=== PATIENT | male | born 1970 | race Two or more races ===

== ENCOUNTER 2016-07-21 06:49 | Day surgery (SDC) | payer OTHER ==
[2016-07-20 15:32] VITALS: BMI 25.9
[2016-07-21] VITALS (14 sets, daily range): BP systolic 124–145; BP diastolic 62–85; PULSE 64–97; RESP 16–18; Ht 167.6 cm; Wt 86.0 kg
[~2016-07-21] VITALS: Ht 167.6 cm; Wt 86.0 kg
[~2016-07-21 06:49] MED LIST: CEFAZOLIN 2 GM/50 ML (PMX) 50 ML IVPB SCH; SOD CHLORIDE 0.9% 1,000 ML IV SCH
[2016-07-21] MEDS ORDERED: CEFAZOLIN 1 GM INJ ONE (07:00)
[2016-07-21] MEDS ORDERED: CLOP75TA4 PO (08:11)
[2016-07-21] MEDS ORDERED: ASPI-664 PO (08:11)
[2016-07-21] MEDS ORDERED: METO-448 PO (08:11)
[2016-07-21] MEDS ORDERED: LOSA25TA5 PO (08:11)
[2016-07-21] MEDS ORDERED: BUPIVACAINE 0.25% (MPF) 30 ML INJ ONE (09:08)
[2016-07-21] MEDS ORDERED: LIDOCAINE 2% (SDV) 5 ML INJ ONE (09:13)
[2016-07-21] MEDS ORDERED: PROPOFOL 20 ML ONE (09:13)
[2016-07-21] MEDS ORDERED: NEOSTIGMINE 3 MG/3 ML SYRINGE ONE ×2 (09:13→09:50)
[2016-07-21] MEDS ORDERED: ROCURONIUM 50 MG INJ ONE (09:13)
[2016-07-21] MEDS ORDERED: GLYCOPYRROLATE 0.4 MG INJ ONE ×2 (09:13→09:50)
[2016-07-21] MEDS ORDERED: SUCCINYLCHOLINE CHLORIDE 100 MG/5 ML SYG IV ONE (09:13)
[2016-07-21] MEDS ORDERED: MEPERIDINE 100 MG INJ ONE (09:14)
[2016-07-21] MEDS ORDERED: LABETALOL HCL 20MG INJ ONE (09:52)
[2016-07-21] MEDS ORDERED: LABETALOL HCL 20MG INJ IV PRN (10:00)
[2016-07-21] MEDS ORDERED: METOCLOPRAMIDE 10 MG INJ IV PRN (10:00)
[2016-07-21] MEDS ORDERED: FENTAnyl 50 MCG/ML VIAL IV PRN ×2 (10:00)
[2016-07-21] MEDS ORDERED: ONDANSETRON 4 MG INJ IV PRN (10:00)
[2016-07-21] MEDS ORDERED: hydrALAzine 20 MG INJ IV PRN (10:00)
[2016-07-21] MEDS ORDERED: EPHEDrine SULFATE 50 MG/5 ML SYG IV PRN (10:00)
[2016-07-21] MEDS ORDERED: MEPERIDINE 25 MG INJ IV PRN (10:00)
[2016-07-21] MEDS ORDERED: MIDAZOLAM 1 MG/ML 2 ML INJ IV PRN (10:00)
[2016-07-21] MEDS ORDERED: DIPHENHYDRAMINE 50 MG INJ IV PRN (10:00)
[2016-07-21] MEDS ORDERED: morphine (1 MG/ML) 10ML SYRINGE IV PRN ×2 (10:00)
[2016-07-21] MEDS ORDERED: HYDROmorphONE (0.2 MG/ML) 10ML SYG IV PRN ×2 (10:00)
--- NOTE | 2016-07-21 10:46 | OPR ---
DATE OF OPERATION: 07/21/2016 INDICATION: This is a 45-year-old male with complex hemorrhoids. He requests surgical excision. R isks, alternatives, benefits, and personnel were discussed with the patient. The patient expressed understanding and consents to the operation. PREOPERATIVE DIAGNOSIS: Complex internal and external grade IV hemorrhoids. POSTOPERATIVE DIAGNOSIS: Complex internal and external grade IV hemorrhoids. OPERATION PERFORMED: 1. Complex internal and external hemorrhoidectomy x2. 2. Rigid proctoscopy. 3. Therapeutic injection of local anesthesia to the perianal region. CPT code 75932. SURGEON: Don Holt MD SPECIMEN: Left lateral and right anterior hemorrhoidal complex. COMPLICATIONS: None. ANESTHESIA: General. PROCEDURE: The patient was taken to the OR and prepped and draped in usual sterile fashion. Surgic al timeout was performed. IV antibiotics were given. Rigid proctoscopy was performed. There was n o evidence of any masses or obstructive lesions. Hemorrhoidectomy was then performed by first asses sing the left lateral column. Schroeder was used to grasp the left lateral hemorrhoidal complex. [id number] 3-0 Vicryl suture was placed into the internal hemorrhoidal artery. The internal an d external hemorrhoidal complex was excised with a 15 blade and handheld LigaSure. There was good h emostasis. The tissue defect was then partially closed with a running 3-0 Vicryl and tied down. The right anterior hemorrhoidal column was addressed in a similar fashion. [id number] 3-0 Vicr yl suture was placed into the right anterior internal hemorrhoidal artery. The internal and externa l hemorrhoidal complex was then excised with a 15 blade and handheld LigaSure. There was good hemos tasis. The defect was then partially closed with a running 3-0 Vicryl. There was good hemostasis. Local anesthesia was injected into the perianal tissues. Dry dressings were applied. Dictated By: DON HOLT MD SB/LUANN Conf#: [id number] DID#: [id number]
[2016-07-21] MEDS ORDERED: BISACODYL (EC) 5 MG TAB PO ONE (11:00)
[2016-07-21] MEDS ORDERED: HYDROCODONE/APAP (5/325) TAB PO ONE (11:00)
[2016-07-22] MEDS ORDERED: MAGN296S40 PO (17:13)
== END 2016-07-21 13:10 | disposition home or self-care (01) ==
LOC: SDS 06:49
PROVIDERS: ATTEND Surgery
DX: K64.3 Fourth degree hemorrhoids (principal); I10 Essential (primary) hypertension; I25.10 Atherosclerotic heart disease of native coronary artery without angina pectoris; E78.5 Hyperlipidemia, unspecified; F17.200 Nicotine dependence, unspecified, uncomplicated; Z98.61 Coronary angioplasty status
CPT/HCPCS: 46260; 88305; J0330; J0690; J1170; J2175; J2710

== ENCOUNTER 2016-07-22 16:06 | Emergency (ER) | payer OTHER ==
[~2016-07-22] VITALS: Wt 89.0 kg
[~2016-07-22 16:06] MED LIST changes: +ASPI-664 PO; -CEFAZOLIN 2 GM/50 ML (PMX) 50 ML IVPB SCH; +CLOP75TA4 PO; +LOSA25TA5 PO; +METO-448 PO; -SOD CHLORIDE 0.9% 1,000 ML IV SCH
[2016-07-22] MEDS ORDERED: MAGNESIUM CITRATE 300 ML BTL PO ONE (17:00)
[2016-07-22] MEDS ORDERED: LIDOCAINE 2% 20 ML UROJET SYRINGE MM ONE (17:00)
--- NOTE | 2016-07-22 17:01 | ERD ---
ER Documentation Chief Complaint Date/Time DATE: 07/22/16 TIME: 16:58 Chief Complaint UNABLE TO URINATE OR HAVE BM SINCE PROCEDURE YESTERDAY HPI 45-year-old male status post internal and external hemorrhoidectomy yesterday under general anesthesia who presents to the emergency room complaining of constipation and difficulty voiding urine. The patient does describe some mild perianal pain that is moderate but he states an inability to have a bowel movement. He denies any nausea or vomiting. He is tolerating oral intake. He is taking a stool softener and Empire. The patient also describes an inability to void urine. He describes suprapubic abdominal fullness and discomfort that is moderate. He describes an urge to urinate. ROS All systems reviewed and are negative except as per history of present illness. Medications Home Meds Active Scripts Magnesium Citrate* (Magnesium Citrate*) 296 Ml Solution, 296 ML PO ONCE Y for CONSTIPATION, #1 BOTTLE 2 Refills Prov:REAL GARCÍA MD 07/22/16 Reported Medications Losartan Potassium* (Losartan Potassium*) 25 Mg Tablet, 25 MG PO DAILY, TAB 07/21/16 Clopidogrel Bisulfate* (Clopidogrel Bisulfate*) 75 Mg Tablet, 75 MG PO DAILY, # 30 TAB 07/21/16 Aspirin* (Aspirin* EC) 81 Mg Tablet.dr, 81 MG PO DAILY, TAB 07/21/16 Metoprolol Tartrate* (Lopressor*) 25 Mg Tab, 25 MG PO BID, #60 TAB 07/21/16 Allergies Allergies: Coded Allergies: No Known Allergy (Unverified , 07/21/16) PMhx/Soc History of Surgery: No (ANGIOGRAM/STENT) Anesthesia Reaction: No Hx Neurological Disorder: No Hx Respiratory Disorders: No Hx Cardiac Disorders: Yes (CHEST PAIN WITH ANGIOGRAM AND STENT) Hx Psychiatric Problems: No Hx Miscellaneous Medical Probl: No Hx Alcohol Use: Yes (SOMETIMES) Hx Substance Use: No Hx Tobacco Use: Yes (5 TO 6 CIG A DAY) Smoking Status: Current every day smoker FmHx Family History: No diabetes Physical Exam Vitals Vital Signs Date Time Temp Pulse Resp B/P Pulse Ox O2 Delivery O2 Flow Rate FiO2 07/22/16 16:07 99.4 87 18 150/81 99 Physical Exam General: Well developed, well nourished, no acute distress Head: Normocephalic, atraumatic. Eyes: Pupils equally reactive, EOM intact ENT: Moist mucous membranes Neck: Supple, no lymphadenopathy Respiratory: Lungs clear bilaterally, no distress Cardiovascular: RRR, no murmurs, rubs, or gallops Abdominal: Soft, mild suprapubic fullness without rebound or guarding : External examination with normal, well-healing surgical site, deferred internal examination MSK: No edema, no unilateral swelling, 5/5 strength Neurologic: Alert and oriented, moving all extremities, normal speech, no focal weakness, no cerebellar signs Skin: No rash Psych: Normal mood Results 24 hrs Current Medications Medications (Trade) Dose Ordered Sig/Marisol Route PRN Reason Start Time Stop Time Status Last Admin Dose Admin Lidocaine (Lidocaine 2% Urojet) 20 ml ONCE ONCE MM 07/22/16 17:00 07/22/16 17:01 DC 07/22/16 17:07 Magnesium Citrate (Citroma) 300 ml ONCE ONCE PO 07/22/16 17:00 07/22/16 17:01 DC 07/22/16 17:07 Procedures/MDM The patient presents with signs and symptoms consistent with urinary retention likely secondary to general anesthesia. Additionally the patient has constipation again likely secondary to general anesthesia and surgical procedure. The patient has a benign abdominal exam I do not believe this is consistent with a bowel obstruction. No signs or symptoms concerning for surgical complication. The patient will benefit from insertion of a Robles catheter, leg bag for approximately 2 days and removal with a trial of urination. No fever no evidence of urinary tract infection no evidence of acute testicular process. Stronger stool softener will also be appropriate. Magnesium citrate provided. The patient's general surgeon, Dr. Holt was notified. No indication for laboratory testing or CT imaging at this time. Return precautions discussed. Greater than 600 cc output of urine after Robles catheter insertion. Leg bag provided. Removal in 1-2 days. We discussed follow up with the patient's primary care doctor within 24 to 48 hours as needed. We also discussed return to the emergency room for worsening symptoms or worsening condition. Outpatient referral: General surgery Dr. Holt Discharge Medications: Magnesium citrate Departure Diagnosis: Primary Impression: Constipation Constipation type: unspecified constipation type Qualified Code: K59.00 - Constipation, unspecified constipation type Additional Impression: Acute urinary retention Condition: Stable REAL GARCÍA MD Jul 22, 2016 17:01
[2016-07-22] MEDS ORDERED: MAGN296S40 PO (17:13)
== END 2016-07-22 18:11 | disposition home or self-care (01) ==
LOC: E/R 16:06
DX: K59.00 Constipation, unspecified (principal); R33.9 Retention of urine, unspecified; F17.210 Nicotine dependence, cigarettes, uncomplicated; Z79.82 Long term (current) use of aspirin; Z79.01 Long term (current) use of anticoagulants; Z98.61 Coronary angioplasty status

== ENCOUNTER 2016-07-24 13:01 | Emergency (ER) | payer OTHER ==
[~2016-07-24] VITALS: Ht 167.6 cm; Wt 85.0 kg
[~2016-07-24 13:01] MED LIST changes: +MAGN296S40 PO
[2016-07-24 13:10] VITALS: Ht 167.6 cm; Wt 85.0 kg
[2016-07-24 16:59] LABS: URINE BLOOD (Dip) POC 3+ (NEGATIVE)
--- NOTE | 2016-07-24 21:18 | ERD ---
ER Documentation Chief Complaint Date/Time DATE: 07/24/16 TIME: 21:16 Chief Complaint Patient here for a tavarez cath removal HPI This patient is a 45-year-old male with history of recent Tavarez catheter insertion approximately 2 days ago seen in the emergency department here by Dr. Shaquille Damian, who stated he may have the catheter removed 48 hours after was placed. Patient is here for removal of the catheter. The patient has no complaints currently. ROS All systems reviewed and are negative except as per history of present illness. Medications Home Meds Active Scripts Magnesium Citrate* (Magnesium Citrate*) 296 Ml Solution, 296 ML PO ONCE Y for CONSTIPATION, #1 BOTTLE 2 Refills Prov:SHAQUILLE DAMIAN MD 07/22/16 Reported Medications Losartan Potassium* (Losartan Potassium*) 25 Mg Tablet, 25 MG PO DAILY, TAB 07/21/16 Clopidogrel Bisulfate* (Clopidogrel Bisulfate*) 75 Mg Tablet, 75 MG PO DAILY, # 30 TAB 07/21/16 Aspirin* (Aspirin* EC) 81 Mg Tablet.dr, 81 MG PO DAILY, TAB 07/21/16 Metoprolol Tartrate* (Lopressor*) 25 Mg Tab, 25 MG PO BID, #60 TAB 07/21/16 Allergies Allergies: Coded Allergies: No Known Allergy (Unverified , 07/21/16) PMhx/Soc History of Surgery: No (ANGIOGRAM/STENT) Anesthesia Reaction: No Hx Neurological Disorder: No Hx Respiratory Disorders: No Hx Cardiac Disorders: Yes (CHEST PAIN WITH ANGIOGRAM AND STENT) Hx Psychiatric Problems: No Hx Miscellaneous Medical Probl: No Hx Alcohol Use: Yes (SOMETIMES) Hx Substance Use: No Hx Tobacco Use: Yes (5 TO 6 CIG A DAY) Smoking Status: Current some day smoker FmHx Noncontributory for chief complaint. Physical Exam Vitals Vital Signs Date Time Temp Pulse Resp B/P Pulse Ox O2 Delivery O2 Flow Rate FiO2 07/24/16 13:10 98.3 92 20 141/90 96 Physical Exam Const: The patient is resting comfortably in no acute distress. Head: Atraumatic Eyes: Normal Conjunctiva ENT: Normal External Ears, Nose and Mouth. Neck: Full range of motion..~ No meningismus. Resp: Clear to auscultation bilaterally Cardio: Regular rate and rhythm, no murmurs Abd: Soft, non tender, non distended. Normal bowel sounds : Tavarez catheter in place with no signs of infection. Skin: No petechiae or rashes Back: No midline or flank tenderness Ext: No cyanosis, or edema Neur: Awake and alert Psych: Normal Mood and Affect Results 24 hrs Laboratory Tests Test 07/24/16 17:00 Bedside Urine pH (LAB) 6.0 Bedside Urine Protein (LAB) 2+ Bedside Urine Glucose (UA) Negative Bedside Urine Ketones (LAB) Negative Bedside Urine Blood 3+ Bedside Urine Nitrite (LAB) Negative Bedside Urine Leukocyte Esterase (L Negative Procedures/MDM 45-year-old male presents to the emergency department for removal of Tavarez catheter. The patient's examination is normal. Patient's blood pressure was elevated (>120/80) but appears stable without evidence of hypertension emergency or urgency. The patient was counseled about the risks of hypertension and urged to pursue outpatient monitoring and therapy within a week with their primary care physician. There is no sign of infection on urine dip. Tavarez catheter removed successfully by nursing staff. The patient tolerated this well. Strict ER return precautions discussed. The patient is to have close follow-up with his primary care physician. Departure Diagnosis: Primary Impression: Encounter for removal of urinary catheter Condition: Fair Patient Instructions: Tavarez Catheter Removal Additional Instructions: Follow up with your PCP within the next 1-3 days for a more thorough evaluation and a possible referral to a specialist. Return the the emergency department immediately if symptoms worsen or change. If you have any questions regarding medications, ask your pharmacist or us before you leave. If any adverse reactions, occur while taking your medications, discontinue the treatment and return to the emergency department immediately. If any new or worsening symptoms, uncontrolled fevers, or other unexplained symptoms occur, return to the emergency department immediately. Take your medications as directed, and complete the entire course of treatment. SAMAN ELLIOTT PA-C July 24, 2016 21:18
== END 2016-07-24 17:14 | disposition home or self-care (01) ==
LOC: FTE 13:01
DX: Z46.6 Encounter for fitting and adjustment of urinary device (principal); F17.210 Nicotine dependence, cigarettes, uncomplicated; Z79.82 Long term (current) use of aspirin; Z98.61 Coronary angioplasty status
CPT/HCPCS: 81003; 99283

== ENCOUNTER 2016-07-28 13:06 | Inpatient (IN) | payer OTHER ==
[~2016-07-28] VITALS: Ht 170.2 cm; Wt 88.9 kg
[2016-07-28] MEDS ORDERED: SOD CHLORIDE 0.9% 1,000 ML IV STA ×3 (13:43→15:39)
[2016-07-28 13:51] LABS: ADD SCAN DIFF NO
[2016-07-28 13:52] LABS: BASOPHILS % 0.2 % (0.0-2.0); EOSINOPHILS % 0.3 % (0.0-7.0); HEMATOCRIT 33.2 % (42.0-52.0); HEMOGLOBIN 10.4 g/dl (14.0-18.0); LYMPHOCYTES % 17.4 % (15.0-51.0); MEAN CORPUSCULAR HEMOGLOBIN 24.7 pg (29.0-33.0); MEAN CORPUSCULAR HGB CONC 31.3 g/dl (32.0-37.0); MEAN CORPUSCULAR VOLUME 78.9 fl (82.0-101.0); MEAN PLATELET VOLUME 10.4 fl (7.4-10.4); MONOCYTE # 0.5 10^3/ul (0.3-0.9); MONOCYTES % 4.5 % (0.0-11.0); NEUTROPHILS % 77.3 % (39.0-77.0); PLATELET COUNT 383 10^3/UL (140-415); RED BLOOD COUNT 4.21 10^6/ul (4.70-6.10); RED CELL DISTRIBUTION WIDTH 20.4 % (11.5-14.5); WHITE BLOOD COUNT 11.6 10^3/ul (4.8-10.8)
--- NOTE | 2016-07-28 14:07 | RADRPT ---
PROCEDURE: XR CHEST AP PORTABLE CLINICAL INDICATION: Syncope TECHNIQUE: Single frontal view of the chest COMPARISON: None. FINDINGS: The cardiomediastinal silhouette and pulmonary vasculature are normal. The lungs are clear. No consolidation, effusion, or pneumothorax. The osseous structures are unremarkable. IMPRESSION: No acute cardiopulmonary process. RPTAT:PP .Alexander Joel MD, MD Date Time Electronically viewed and signed by .Alexander Joel MD, MD on 07/28/2016 14:07 .V/
[2016-07-28 14:09] LABS: INR 1.03; PROTIME 13.5 Sec (12.2-14.2); PT RATIO 1.1
[2016-07-28 14:10] LABS: PARTIAL THROMBOPLASTIN TIME 26.1 Sec (25.0-35.0)
[2016-07-28 14:12] LABS: POTASSIUM 3.9 mmol/L (3.5-5.1)
[2016-07-28 14:14] LABS: CREATININE 0.99 mg/dl (0.61-1.24)
[2016-07-28 14:15] LABS: CALCIUM 9.6 mg/dl (8.4-10.2)
--- NOTE | 2016-07-28 14:55 | ERA ---
ER Documentation Chief Complaint Date/Time DATE: 07/28/16 TIME: 14:51 Chief Complaint rectal bleed x 4 days HPI 45-year-old male with a history of coronary artery disease status post PCI and internal/external hemorrhoidectomy 07/21/2016 complicated by postop urinary retention presents the ED by rescue ambulance complaining of ongoing, severe, rectal pain and profuse bleeding. Denies chest pain or palpitations. Light headed but no syncope. Denies abdominal pain N/V/D/C. No relieving or exacerbating factors. No fevers or chills. ROS All systems reviewed and are negative except as per history of present illness. Medications Home Meds Active Scripts Polysaccharide Iron Complex* (NIFEREX-150*) 1 Cap Cap, 1 CAP PO BID for 28 Days , CAP Prov:FLAVIA SAEZ MD 07/30/16 Reported Medications Sennosides/Docusate Sodium (Stool Softener-Laxative Tablet) 1 Each Tablet, 1 EACH PO BID, TAB 07/28/16 Hydrocodone/Acetaminophen (Madison 5-325 Tablet) 1 Each Tablet, 1 EACH PO QID, TAB 07/28/16 Losartan Potassium* (Losartan Potassium*) 25 Mg Tablet, 25 MG PO DAILY, TAB 07/21/16 Clopidogrel Bisulfate* (Clopidogrel Bisulfate*) 75 Mg Tablet, 75 MG PO DAILY, # 30 TAB 07/21/16 Aspirin* (Aspirin* EC) 81 Mg Tablet.dr, 81 MG PO DAILY, TAB 07/21/16 Metoprolol Tartrate* (Lopressor*) 25 Mg Tab, 25 MG PO BID, #60 TAB 07/21/16 Discontinued Scripts Magnesium Citrate* (Magnesium Citrate*) 296 Ml Solution, 296 ML PO ONCE Y for CONSTIPATION, #1 BOTTLE 2 Refills Prov:REAL GARCÍA MD 07/22/16 Allergies Allergies: Coded Allergies: No Known Allergy (Unverified , 07/28/16) PMhx/Soc Reviewed in chart. As per HPI History of Surgery: No (ANGIOGRAM/STENT, HEMORRHOID/RECTAL) Anesthesia Reaction: No Hx Neurological Disorder: No Hx Respiratory Disorders: No Hx Cardiac Disorders: Yes (CHEST PAIN WITH ANGIOGRAM AND STENT, HTN, HYPERLIPIDEMIA) Hx Psychiatric Problems: No Hx Miscellaneous Medical Probl: No Hx Alcohol Use: Yes (SOMETIMES) Hx Substance Use: No Hx Tobacco Use: Yes Smoking Status: Current every day smoker FmHx Not relevant to presenting complaint. Reviewed in chart. Physical Exam Vitals Vital Signs Date Time Temp Pulse Resp B/P Pulse Ox O2 Delivery O2 Flow Rate FiO2 07/28/16 13:59 Nasal Cannula 2 07/28/16 13:14 97.5 102 18 104/58 99 Physical Exam Const: Alert moderate distress. Head: Atraumatic Eyes: Conjunctiva pale ENT: Normal External Ears, Nose and Mouth. Neck: Full range of motion.Nontender Resp: Clear to auscultation bilaterally Cardio: Regular rate and rhythm, no murmurs Abd: Soft, non tender, non distended. Normal bowel sounds. Rectal Exam: Mild bleeding. Diffuse tenderness. Skin: No petechiae or rashes Back: No midline or flank tenderness Ext: No cyanosis, or edema Neur: Awake and alert. No focal deficit. Psych: Anxious but not depressed. Result Diagram: 07/30/16 0501 07/30/16 0501 Results 24 hrs Laboratory Tests Test 07/28/16 13:35 07/28/16 13:37 Bedside Glucose 170mg/dL White Blood Count 11.610^3/ul Red Blood Count 4.2110^6/ul Hemoglobin 10.4g/dl Hematocrit 33.2% Mean Corpuscular Volume 78.9fl Mean Corpuscular Hemoglobin 24.7pg Mean Corpuscular Hemoglobin Concent 31.3g/dl Red Cell Distribution Width 20.4% Platelet Count 27113^3/UL Mean Platelet Volume 10.4fl Neutrophils % 77.3% Lymphocytes % 17.4% Monocytes % 4.5% Eosinophils % 0.3% Basophils % 0.2% Nucleated Red Blood Cells % 0.0/100WBC Neutrophils # 9.010^3/ul Lymphocytes # 2.010^3/ul Monocytes # 0.510^3/ul Eosinophils # 0.010^3/ul Basophils # 0.010^3/ul Nucleated Red Blood Cells # 0.010^3/ul Prothrombin Time 13.5Sec Prothrombin Time Ratio 1.1 INR International Normalized Ratio 1.03 Activated Partial Thromboplast Time 26.1Sec Sodium Level 140mmol/L Potassium Level 3.9mmol/L Chloride Level 103mmol/L Carbon Dioxide Level 23mmol/L Anion Gap 18 Blood Urea Nitrogen 17mg/dl Creatinine 0.99mg/dl Glucose Level 158mg/dl Calcium Level 9.6mg/dl Troponin I < 0.012ng/ml Current Medications Medications (Trade) Dose Ordered Sig/Marisol Route PRN Reason Start Time Stop Time Status Last Admin Dose Admin Sodium Chloride (NS) 1,000 ml @ 1,000 mls/hr Q1H STAT IV 07/28/16 13:43 07/28/16 14:42 DC 07/28/16 15:13 EKG: Time: []. Sinus rhythm. Ventricular rate [], normal LA and QRS intervals. No acute ST segment elevation or depression. No axis deviation or ectopy. EP Impression: Normal EKG IMAGING: [ ] Procedures/MDM DOCUMENTS REVIEWED: ED nurse, prior ED, prior MEDICAL DECISION MAKIN-year-old male with a history of coronary artery disease status post PCI and internal/external hemorrhoidectomy 07/21/2016 complicated by postop urinary retention presents the ED by rescue ambulance complaining of ongoing, severe, rectal pain and bleeding. Post-Op pain without signs of infection or abscess. Ongoing bleeding likely due to ongoing clopidogrel and aspirin use. H/H 10.4/33.2 but suspect will drop significantly after IV hydration. Admit to med/surg for further evalauation and management including serial H/H's, pain management and surgical consultation. Counseled patient and family regarding diagnosis, diagnostic results and plan for admission. CALLS/CONSULTS: Time 14:50, Dr. Chiqui Ochoa, Recommends admission. CALLS/CONSULTS: Time 15:30, Dr. Elena Saez, Recommends admission to med/surg. PATIENT CARE TRANSITIONED: Time: 15:30, Dr. Elena Saez. Departure Diagnosis: Primary Impression: Rectal hemorrhage Additional Impressions: Post-op pain H/O heart artery stent Bleeding hemorrhoids Condition: Serious GUY SHIPMAN MD July 28, 2016 14:55
[2016-07-28] MEDS ORDERED: HYDR-906 PO (15:03)
[2016-07-28] MEDS ORDERED: SENN1TAB5 PO (15:05)
[2016-07-28] MEDS ORDERED: ONDANSETRON 4 MG INJ IV PRN ×2 (16:00→16:30)
[2016-07-28] MEDS ORDERED: ACETAMINOPHEN 325 MG TAB PO PRN ×2 (16:00→16:30)
--- NOTE | 2016-07-28 16:08 | QN ---
Documentation Comment [id number] FLAVIA SAEZ MD July 28, 2016 16:08
[2016-07-28 16:19] VITALS: TEMP 98
--- NOTE | 2016-07-28 16:24 | HP ---
DATE OF ADMISSION: 07/28/2016 HISTORY OF PRESENT ILLNESS: The patient is a 45-year-old male with history of CAD, history of coron keesha angiogram and stent placement in the past, recently had hemorrhoid surgery, presented with blood per rectum. Surgery was done last week. Patient's hematocrit was 33.2. ____ 11.6, sodium 140, po tassium 3.9. The patient denies any chest pain, palpitations right now. Chest x-ray is unremarkabl e. PAST MEDICAL HISTORY: Positive for hemorrhoids, status post surgery, history of CAD, history of cor onary angiogram and stent placement. ALLERGY HISTORY: NEGATIVE. FAMILY HISTORY: Negative. SOCIAL HISTORY: Negative at this point. MEDICATIONS: 1. Aspirin. 2. Plavix. 3. Hydrocodone. 4. Losartan. 5. Metoprolol. 6. Senna. REVIEW OF SYSTEMS: HEENT: Unremarkable. RESPIRATORY: Unremarkable. CARDIOVASCULAR: Unremarkable. ABDOMEN: As mentioned above. EXTREMITIES: Unremarkable. PHYSICAL EXAMINATION: GENERAL: The patient is awake, alert. VITAL SIGNS: Stable. HEAD: Atraumatic, normocephalic. Pupils equal, reactive to light. NECK: Supple. No JVD. LUNGS: Clear. CARDIOVASCULAR: S1, S2 are normal. ABDOMEN: Soft, nontender. Bowel sounds present. No palpable mass or hepatosplenomegaly. No guard ing or rebound tenderness. EXTREMITIES: No cyanosis, clubbing, or edema. CENTRAL NERVOUS SYSTEM: The patient is awake and alert with no focal deficit. LABORATORY DATA: As mentioned above. IMPRESSION: The patient has rectal bleed status post hemorrhoid surgery and leukocytosis. The azar ent has history of CAD and stent placement. PLAN: Continue gentle IV fluid, check CBC. If low, blood transfusion. The patient should have a f ollowup from Dr. Holt, the surgeon. The patient's electrolytes will be monitored. Dictated By: FLAVIA SAEZ MD BS/NTS Conf#: [id number] DID#: [id number]
[2016-07-28] MEDS ORDERED: NACL 0.9% 3 ML SYG IV SCH (16:30)
[2016-07-28] MEDS ORDERED: MAGNESIUM HYDROXIDE 30ML CUP PO PRN (16:30)
[2016-07-28] MEDS ORDERED: DOCUSATE SODIUM 100 MG CAP PO PRN (16:30)
[2016-07-28 16:38] LABS: ADD SCAN DIFF NO
[2016-07-28 16:44] LABS: BASOPHILS % 0.1 % (0.0-2.0); EOSINOPHILS % 0.2 % (0.0-7.0); HEMATOCRIT 27.8 % (42.0-52.0); HEMOGLOBIN 8.5 g/dl (14.0-18.0); LYMPHOCYTES # 1.2 10^3/ul (0.8-2.9); LYMPHOCYTES % 12.2 % (15.0-51.0); MEAN CORPUSCULAR HEMOGLOBIN 24.6 pg (29.0-33.0); MEAN CORPUSCULAR HGB CONC 30.6 g/dl (32.0-37.0); MEAN CORPUSCULAR VOLUME 80.3 fl (82.0-101.0); MONOCYTE # 0.4 10^3/ul (0.3-0.9); MONOCYTES % 4.1 % (0.0-11.0); NEUTROPHIL # 7.8 10^3/ul (1.6-7.5); NEUTROPHILS % 83.1 % (39.0-77.0); PLATELET COUNT 266 10^3/UL (140-415); RED BLOOD COUNT 3.46 10^6/ul (4.70-6.10); RED CELL DISTRIBUTION WIDTH 20.9 % (11.5-14.5); WHITE BLOOD COUNT 9.4 10^3/ul (4.8-10.8)
[2016-07-28] MEDS: NS + KCL 20 MEQ 1,000 ML IV SCH (17:31)
[2016-07-28 18:11] VITALS: BP 109/56; RESP 18
[2016-07-28 18:34] VITALS: Ht 170.2 cm; Wt 88.9 kg
[2016-07-28 20:00] VITALS: BP 106/58; RESP 20
[2016-07-28] MEDS ORDERED: PHENOL 1.4% SOLN 180 ML BTL MT PRN (20:30)
[2016-07-29] MEDS: PANTOPRAZOLE 40 MG INJ IV SCH (05:52)
[2016-07-29 07:45] VITALS: BP 129/64; RESP 18
[2016-07-29] MEDS: NS + KCL 20 MEQ 1,000 ML IV SCH (09:31)
[2016-07-29 10:36] LABS: ADD SCAN DIFF NO
[2016-07-29 10:45] LABS: BASOPHILS % 0.2 % (0.0-2.0); EOSINOPHILS # 0.1 10^3/ul (0.0-0.5); EOSINOPHILS % 1.6 % (0.0-7.0); HEMATOCRIT 23.9 % (42.0-52.0); HEMOGLOBIN 7.4 g/dl (14.0-18.0); LYMPHOCYTES # 1.5 10^3/ul (0.8-2.9); LYMPHOCYTES % 34.9 % (15.0-51.0); MEAN CORPUSCULAR HEMOGLOBIN 24.9 pg (29.0-33.0); MEAN CORPUSCULAR VOLUME 80.5 fl (82.0-101.0); MEAN PLATELET VOLUME 10.2 fl (7.4-10.4); MONOCYTE # 0.3 10^3/ul (0.3-0.9); MONOCYTES % 6.2 % (0.0-11.0); NEUTROPHIL # 2.5 10^3/ul (1.6-7.5); NEUTROPHILS % 56.6 % (39.0-77.0); PLATELET COUNT 235 10^3/UL (140-415); RED BLOOD COUNT 2.97 10^6/ul (4.70-6.10); RED CELL DISTRIBUTION WIDTH 20.5 % (11.5-14.5); WHITE BLOOD COUNT 4.4 10^3/ul (4.8-10.8)
[2016-07-29 11:10] LABS: ALBUMIN 3.7 g/dl (3.3-4.9); ALBUMIN/GLOBULIN RATIO 1.27; BILIRUBIN,INDIRECT 0.3 mg/dl (0-1.1); BILIRUBIN,TOTAL 0.3 mg/dl (0.2-1.3); CALCIUM 8.6 mg/dl (8.4-10.2); CREATININE 0.78 mg/dl (0.61-1.24); POTASSIUM 4.2 mmol/L (3.5-5.1); TOTAL PROTEIN 6.6 g/dl (6.1-8.1)
[2016-07-29 14:13] LABS: HEMATOCRIT 22.4 % (42.0-52.0)
[2016-07-29 14:24] LABS: HEMOGLOBIN 6.9 g/dl (14.0-18.0)
--- NOTE | 2016-07-29 14:46 | PN ---
DATE: 07/29/2016 SUBJECTIVE: Feels slightly better. Has been out of bed to urinate going to the bathroom. He does not report any dizziness today. No rectal bleeding today. OBJECTIVE GENERAL: Awake, alert, oriented x3. VITAL SIGNS: Temperature 98, heart rate 85 and regular, respirations 18, blood pressure 129/64, sat uration 97% on room air. LABORATORY DATA: Chemistry within normal limits. WBC 4400 with 56% neutrophils. Hemoglobin has dr opped to 7.4, hematocrit 23.9, yesterday it was 8.5 and 27.8, and on admission was 10.4 and hematocr it 33.2. ABDOMEN: Soft. EXTREMITIES: Lower extremity: No pitting edema. ASSESSMENT: A 45-year-old male who is status post hemorrhoidectomy, on postop day #7, namely on Luciana , he experienced an acute episode of bleeding from the rectum and then he came to the emergency room. In the emergency room, was evaluated. Also, in the emergency room, when he went to the bath room to urinate, he got dizzy and almost had a syncopal attack. So, the patient was admitted. On a dmission we see the hemoglobin has been gradually dropping since admission, it is 7.4 today. Today he is relatively stable. PLAN: 1. Start patient on clear liquids only. 2. Check the H and H every 8 hours. If hemoglobin is less than 7 to transfuse 2 units of packed ce lls. 3. Hold on aspirin and Plavix. We will follow the patient and we will see the patient tomorrow and make further decisions. Dictated By: ABDIEL PERSON/LUANN Conf#: [id number] DID#: [id number]
--- NOTE | 2016-07-29 15:38 | PN ---
Date/Time of Note Date/Time of Note DATE: 07/29/16 TIME: 15:36 Assessment/Plan VTE Prophylaxis VTE Prophylaxis Intervention: ambulation Lines/Catheters IV Catheter Type (from [facility]): Peripheral IV Central line still needed: No Assessment/Plan Chief Complaint/Hosp Course 1. s/p hemorrhoidectomy 2. syncope 3. Anemia Problems: Assessment/Plan 1. Clear liquid diet 2. Weight restrictions 3. Iron supplement Subjective 24 Hr Interval Summary Constitutional: no complaints ENT: no complaints Respiratory: no complaints Cardiovascular: no complaints Gastrointestinal: pain Genitourinary: no complaints Musculoskeletal: no complaints Exam/Review of Systems Vital Signs Vitals Vital Signs Date Time Temp Pulse Resp B/P Pulse Ox O2 Delivery O2 Flow Rate FiO2 07/29/16 07:45 98.0 85 18 129/64 97 07/28/16 16:19 Room Air 07/28/16 13:59 2 Intake and Output 07/28/16 07/28/16 07/29/16 15:00 23:00 07:00 Intake Total 3000 ml 840 ml Output Total 0 ml Balance 3000 ml 840 ml Exam Constitutional: alert, oriented, well developed Head: normocephalic Eyes: nl conjunctiva Neck: supple Respiratory: clear to auscultation Cardiovascular: regular rate and rhythm Results Result Diagram: 07/29/16 1400 07/29/16 1030 Results 24 hrs Laboratory Tests Test 07/28/16 16:05 07/29/16 10:30 07/29/16 14:00 White Blood Count 9.4 4.4 #L Red Blood Count 3.46 L 2.97 L Hemoglobin 8.5 L 7.4 L 6.9 *L Hematocrit 27.8 L 23.9 L 22.4 L Mean Corpuscular Volume 80.3 L 80.5 L Mean Corpuscular Hemoglobin 24.6 L 24.9 L Mean Corpuscular Hemoglobin Concent 30.6 L 31.0 L Red Cell Distribution Width 20.9 H 20.5 H Platelet Count 266 # 235 Mean Platelet Volume 11.0 H 10.2 Neutrophils % 83.1 H 56.6 Lymphocytes % 12.2 L 34.9 Monocytes % 4.1 6.2 Eosinophils % 0.2 1.6 Basophils % 0.1 0.2 Nucleated Red Blood Cells % 0.0 0.0 Neutrophils # 7.8 H 2.5 Lymphocytes # 1.2 1.5 Monocytes # 0.4 0.3 Eosinophils # 0.0 0.1 Basophils # 0.0 0.0 Nucleated Red Blood Cells # 0.0 0.0 Sodium Level 138 Potassium Level 4.2 Chloride Level 108 Carbon Dioxide Level 25 Anion Gap 9 # Blood Urea Nitrogen 13 Creatinine 0.78 Glucose Level 90 # Calcium Level 8.6 Total Bilirubin 0.3 Direct Bilirubin 0.00 Indirect Bilirubin 0.3 Aspartate Amino Transf (AST/SGOT) 17 Alanine Aminotransferase (ALT/SGPT) 33 Alkaline Phosphatase 55 Total Protein 6.6 Albumin 3.7 Globulin 2.90 Albumin/Globulin Ratio 1.27 Medications Medications Current Medications Potassium Chloride/Sodium Chloride (NS-KCl 20 Meq) 1,000 ml @ 60 mls/hr [id number] IV Last administered on 07/29/16 09:31; Admin Dose 60 MLS/HR; Start 07/28/16 at 16:08 Ondansetron HCl (Zofran Inj) 4 mg Q6H PRN IV NAUSEA AND/OR VOMITING; Start 07/28 at 16:30 Acetaminophen (Tylenol Tab) 650 mg Q6H PRN PO PAIN LEVEL 1-3 OR FEVER; Start at 16:30 Docusate Sodium (Colace) 100 mg Q12H PRN PO CONSTIPATION; Start 07/28/16 at 16: 30 Magnesium Hydroxide (Milk Of Mag) 30 ml DAILY PRN PO CONSTIPATION; Start at 16:30 Pantoprazole (Protonix Iv) 40 mg DAILY@06 IV Last administered on 07/29/16 05: 52; Admin Dose 40 MG; Start 07/29/16 at 06:00 BRADEN ALLEN July 29, 2016 15:38
[2016-07-29] MEDS ORDERED: HYDROCODONE/APAP (5/325) TAB PO PRN (16:00)
[2016-07-29 20:00] VITALS: BP 119/58; PULSE 61; RESP 18
[2016-07-29] MEDS: POLYSACCHARIDE IRON COMPLEX CAP PO SCH (20:36)
[2016-07-30] MEDS: NS + KCL 20 MEQ 1,000 ML IV SCH ×2 (01:28→05:33)
[2016-07-30] MEDS: PANTOPRAZOLE 40 MG INJ IV SCH (05:33)
[2016-07-30 05:50] LABS: ADD SCAN DIFF NO
[2016-07-30 05:59] LABS: BASOPHILS % 0.3 % (0.0-2.0); EOSINOPHILS # 0.2 10^3/ul (0.0-0.5); EOSINOPHILS % 2.1 % (0.0-7.0); HEMATOCRIT 28.5 % (42.0-52.0); LYMPHOCYTES # 2.2 10^3/ul (0.8-2.9); LYMPHOCYTES % 31.3 % (15.0-51.0); MEAN CORPUSCULAR HEMOGLOBIN 25.6 pg (29.0-33.0); MEAN CORPUSCULAR HGB CONC 31.6 g/dl (32.0-37.0); MEAN CORPUSCULAR VOLUME 81.2 fl (82.0-101.0); MEAN PLATELET VOLUME 10.9 fl (7.4-10.4); MONOCYTE # 0.4 10^3/ul (0.3-0.9); MONOCYTES % 6.2 % (0.0-11.0); NEUTROPHIL # 4.2 10^3/ul (1.6-7.5); NEUTROPHILS % 59.7 % (39.0-77.0); PLATELET COUNT 226 10^3/UL (140-415); RED BLOOD COUNT 3.51 10^6/ul (4.70-6.10); RED CELL DISTRIBUTION WIDTH 18.6 % (11.5-14.5); WHITE BLOOD COUNT 7.1 10^3/ul (4.8-10.8)
[2016-07-30 06:21] LABS: CALCIUM 8.9 mg/dl (8.4-10.2); CREATININE 0.82 mg/dl (0.61-1.24)
[2016-07-30 07:23] VITALS: BP 125/71; RESP 18
[2016-07-30] MEDS: POLYSACCHARIDE IRON COMPLEX CAP PO SCH (10:21)
--- NOTE | 2016-07-30 16:59 | PDOCDIS ---
Discharge Instructions CONDITION Patient Condition: Stable ACTIVITY: Activity Restrictions: Slowly Increase Activity FOLLOW UP/APPOINTMENTS Appointments f/u own pcp [address] doran 1 wk FLAVIA SAEZ MD July 30, 2016 16:59
[2016-07-30] MEDS ORDERED: NIF150 PO (17:00)
== END 2016-07-30 17:20 | disposition home or self-care (01) | DRG 379 ==
LOC: E/R 13:06 → MS2 15:34
PROVIDERS: ADMIT Internal Medicine Nephrology; ATTEND Internal Medicine Nephrology
DX: K62.5 Hemorrhage of anus and rectum (principal); R55 Syncope and collapse; I10 Essential (primary) hypertension; I25.10 Atherosclerotic heart disease of native coronary artery without angina pectoris; F17.210 Nicotine dependence, cigarettes, uncomplicated; E78.5 Hyperlipidemia, unspecified; G89.18 Other acute postprocedural pain; Z79.02 Long term (current) use of antithrombotics/antiplatelets; Z79.82 Long term (current) use of aspirin; Z95.5 Presence of coronary angioplasty implant and graft
CPT/HCPCS: 36415; 36430; 71010; 80048; 80053; 82962; 84484; 85014; 85018; 85025; 85610; 85730; 86850; 86900; 86901; 86920; 93005; 96360; C9113; J3480; J7030; P9016

== ENCOUNTER 2017-05-01 12:38 | Observation (INO) | END 2017-05-02 20:13 | disposition home or self-care (01) ==

== ENCOUNTER 2018-03-03 16:00 | Emergency (ER) | END 2018-03-03 19:17 | disposition home or self-care (01) ==